=== PATIENT | male | born 1975 ===

== ENCOUNTER 2020-07-10 22:12 | Emergency (ER) | payer SELFPAY ==
[2020-07-11] MEDS ORDERED: dexAMETHasone 20 MG/5 ML VIAL IM ONE (00:22)
[2020-07-11] MEDS ORDERED: FAMOTIDINE 20 MG TAB PO ONE (00:22)
[2020-07-11] MEDS ORDERED: diphenhydrAMINE 25 MG CAP PO ONE (00:22)
--- NOTE | 2020-07-11 00:48 | Emergency Department Report ---
ED Allergic Reaction HPI - General Chief complaint: Allergic Reaction Stated complaint: FACE SWOLLEN Time Seen by Provider: 07/10/20 23:57 Source: patient Mode of arrival: Ambulatory Limitations: No Limitations - History of Present Illness Initial Comments: Patient is a 45-year-old male who presents emergency room with complaints of intermittent episodes of urticaria that began approximately 3 months ago. He states he has an appointment with a training and development head on Sunday07/12/2020. Patient states that this episode began tonight. He states that he typically takes Benadryl which improves his urticaria. He states that tonight the urticaria did improve but he began having left-sided facial swelling. He denies any difficulty swallowing, sensation of throat closing, difficulty breathing. He denies any new soaps, lotions, detergents, medications, foods, anything new that he is aware of. He states he is not sure what is triggering his urticaria. No other past medical history. No allergies to medications. He denies any known allergies. He states he last had Benadryl approximately 6 hours prior to arrival. - Related Data Previous Rx's Medication Instructions Recorded Last Taken Type Cetirizine HCl [Zyrtec 10mg tab] 10 mg PO DAILY #30 tablet 07/11/20 Unknown Rx Famotidine [Pepcid] 40 mg PO QHS #30 tablet 07/11/20 Unknown Rx Prednisone [predniSONE 10 mg 10 mg PO .TAPER #1 tab.ds.pk 07/11/20 Unknown Rx (6-Day Pack, 21 Tabs)] diphenhydrAMINE [Benadryl CAP] 25 mg PO Q8HR PRN #30 capsule 07/11/20 Unknown Rx Allergies Allergy/AdvReac Type Severity Reaction Status Date / Time No Known Allergies Allergy Unverified 06/30/13 17:14 ED Review of Systems ROS: Stated complaint: FACE SWOLLEN Other details as noted in HPI Comment: All other systems reviewed and negative ED Past Medical Hx - Past Medical History Previous Medical History?: No 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 - Surgical History Past Surgical History?: No - Social History Smoking Status: Current Every Day Smoker Substance Use Type: Alcohol - Medications Home Medications: Home Medications Medication Instructions Recorded Confirmed Last Taken Type Cetirizine HCl [Zyrtec 10mg tab] 10 mg PO DAILY #30 tablet 07/11/20 Unknown Rx Famotidine [Pepcid] 40 mg PO QHS #30 tablet 07/11/20 Unknown Rx Prednisone [predniSONE 10 mg 10 mg PO .TAPER #1 tab.ds.pk 07/11/20 Unknown Rx (6-Day Pack, 21 Tabs)] diphenhydrAMINE [Benadryl CAP] 25 mg PO Q8HR PRN #30 capsule 07/11/20 Unknown Rx ED Physical Exam - General Limitations: No Limitations General appearance: alert, in no apparent distress - Eye Eye exam: Present: normal appearance - ENT ENT exam: Present: normal orophraynx, mucous membranes moist, other (no tongue edema, no lip edema, normal oropharynx) - Respiratory Respiratory exam: Present: normal lung sounds bilaterally. Absent: respiratory distress, wheezes, rales, rhonchi, stridor, chest wall tenderness, accessory muscle use, decreased breath sounds, prolonged expiratory - Cardiovascular Cardiovascular Exam: Present: regular rate, normal rhythm, normal heart sounds. Absent: systolic murmur, diastolic murmur, rubs, gallop - Neurological Exam Neurological exam: Present: alert, oriented X3 - Psychiatric Psychiatric exam: Present: normal affect, normal mood - Skin Skin exam: Present: warm, dry, urticaria (present to the face and neck, there is mild left sided facial edema, no blistering, no skin denuding) ED Course Vital Signs 07/10/20 07/11/20 07/11/20 22:40 03:30 03:33 Temperature 98.5 F 98.5 F Pulse Rate 84 80 Respiratory 18 20 20 Rate Blood Pressure 129/90 Blood Pressure 128/77 [Left] O2 Sat by Pulse 99 99 99 Oximetry ED Medical Decision Making - Medical Decision Making Patient is a 45-year-old male who presents emergency room with complaints of intermittent episodes of urticaria that began approximately 3 months ago. He states he has an appointment with a training and development head on Sunday07/12/2020. Patient states that this episode began tonight. He states that he typically takes Benadryl which improves his urticaria. He states that tonight the urticaria did improve but he began having left-sided facial swelling. He denies any difficulty swallowing, sensation of throat closing, difficulty breathing. He denies any new soaps, lotions, detergents, medications, foods, anything new that he is aware of. He states he is not sure what is triggering his urticaria. No other past medical history. No allergies to medications. He denies any known allergies. He states he last had Benadryl approximately 6 hours prior to arrival. Vitals are normal. On exam:present to the face and neck, there is mild left sided facial edema, no blistering, no skin denuding, normal oropharynx, no tongue edema, no lip edema, no stridor, breath sounds are clear. Patient given medications on the emergency department and symptoms improved. Given prescription for medications. Advised patient Please take medication as prescribed. Please keep appointment with your training and development head. Follow-up with a primary care doctor. Return to emergency room for any new or worsening symptoms including but not limited to difficulty swallowing, sensation of throat closing, difficulty breathing, etc. Critical care attestation.: If time is entered above; I have spent that time in minutes in the direct care of this critically ill patient, excluding procedure time. ED Disposition Clinical Impression: Urticaria, Facial edema Disposition: TO HOME OR SELFCARE Is pt being admited?: No Does the pt Need Aspirin: No Condition: Stable Instructions: Hives Additional Instructions: Please take medication as prescribed. Please keep appointment with your training and development head. Follow-up with a primary care doctor. Return to emergency room for any new or worsening symptoms including but not limited to difficulty swallowing, sensation of throat closing, difficulty breathing, etc. Prescriptions: Famotidine [Pepcid] 40 mg PO QHS #30 tablet diphenhydrAMINE [Benadryl CAP] 25 mg PO Q8HR PRN #30 capsule PRN Reason: itching/rash/swelling Prednisone [predniSONE 10 mg (6-Day Pack, 21 Tabs)] 10 mg PO .TAPER #1 tab.ds.pk Cetirizine HCl [Zyrtec 10mg tab] 10 mg PO DAILY #30 tablet Referrals: PRIMARY CARE,MD [Primary Care Provider] - 2-3 Days your, training and development head [Other] - 24 Hours Time of Disposition: 00:46 Print Language: ISRA[place]I
[2020-07-11 03:31] VITALS: BP 128/77
== END 2020-07-11 03:35 | disposition home or self-care (01) ==
LOC: ED 22:12
DX: L50.9 Urticaria, unspecified (principal); R22.0 Localized swelling, mass and lump, head; F17.200 Nicotine dependence, unspecified, uncomplicated; Z72.89 Other problems related to lifestyle; Z79.899 Other long term (current) drug therapy
CPT/HCPCS: 96372; 99282; J1100